=== PATIENT | female | born 1990 | race African-American/Black ===

== ENCOUNTER 2021-08-15 11:33 | Emergency (ER) | payer OTHER ==
[~2021-08-15] VITALS: Ht 160 cm; Wt 61.7 kg
[2021-08-15] MEDS ORDERED: PRENATAL + DHA1 EAC1 (11:57)
== END 2021-08-15 16:25 | disposition home or self-care (01) ==
LOC: ER 11:33
DX: N92.6 Irregular menstruation, unspecified (principal)